=== PATIENT | male | born 2000 | race Caucasian/White ===

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

== ENCOUNTER 2023-04-05 00:45 | Emergency (ER) | payer MEDICAID, SELFPAY ==
[2023-04-05 00:48] VITALS: BP 130/62; PULSE 91; RESP 18; TEMP 36.8; O2SAT 97; BMI 33.5
--- NOTE | 2023-04-05 01:14 | EDS_ITS ---
HPI History of Present Illness Chief Complaint: Chest Pain Detail of Chief Complaint: Epigastric abdominal pain after binge drinking the last several days. Informant: patient Onset/Context/Timing Onset: Hours and Days Timing: Continuous Quality: Positive for Aching Location: - (Epigastric abdominal pain. Not chest pain.) Maximum Severity: Moderate Associated Symptoms: Positive for Nausea and Vomiting Narrative Narrative: 23-year-old male no significant past medical or surgical history. Denies prior abdominal surgery. He has been binge drinking the last several days. Complaining of epigastric abdominal pain with nausea and vomiting the last 2 days. Denies any hematemesis. No fever. No melena. No prior history of pancreatitis. Denies ever being sick like this before when he drank but he did have 1 time around 18 years old when he had alcohol poisoning. Prior Similar Symptoms: No Recent Illness/Hospitalization: No CVD Risk Factors: Negative for Hypertension, Diabetes or Hypercholesterolemia PE Risk Factors: Negative for Recent Travel/Surgery, Recent Immobilization, Prior DVT or PE or Cancer TAD Risk Factors: Negative for Marfan's Syndrome PFSH PFSH Medical History Bipolar disorder Medical History no medical history Allergy/AdvReac Type Severity Reaction Status Date / Time No Known Allergies Allergy Verified 04/05/23 00:46 Surgical History no surgical history Social History Smoking Status: Never smoker ROS ROS ED ROS Narrative No recent illness. Epigastric abdominal pain after binge drinking. Nausea vomiting. Review of Systems ROS Unobtainable: Denies due to encephalopathy Constitutional Constitutional ED: Denies chills or fever(s) Eyes Eyes: Reports none ENT ENT ED: Denies ear pain Cardiovascular Cardiovascular: Denies chest pain Respiratory/Chest Respiratory/Chest: Reports dyspnea; Denies cough Gastrointestinal Gastrointestinal: Reports abdominal pain, nausea and vomiting; Denies constipation, diarrhea or melena Genitourinary Genitourinary ED: Denies dysuria or hematuria Musculoskeletal Musculoskeletal: Denies arthralgias Integumentary Denies abscess Neurologic Neurologic: Denies headache(s) Psychiatric Psychiatric: Denies anxiety Endocrine Endocrinology: Denies cold intolerance Hematologic/Lymphatic Hematologic/Lymphatic: Denies easy bleeding Allergic/Immunologic Allergic/Immunologic ED: Denies mouth swelling EXAM Physical Exam Narrative Exam Narrative: 23-year-old male. Complaining of epigastric Joseph pain. Vital signs stable afebrile. HEENT exam mildly dry. Neck nontender. Lungs are clear. Heart regular rhythm rate about 90 no murmur. Chest wall nontender. Abdomen soft, nondistended normal bowel sounds no peritoneal signs. Right upper and right lower quadrant unremarkable. Reproducible epigastric abdominal pain. No distention. Moving all 4 extremities. Neurologically awake and alert. No focal motor deficits. Back nontender. No trauma. Const Vital Signs: 04/05/23 00:48 04/05/23 00:52 04/05/23 02:45 Temperature 98.2 F Temperature Source Oral Pulse Rate 91 91 Respiratory Rate 18 18 Respiratory Effort Normal Blood Pressure 130/62 H 130/62 H Blood Pressure Mean 84 Pulse Ox 97 97 Oxygen Delivery Method Room Air Positive well nourished and well developed; Negative for cachectic, contractures or unkempt General Appearance ED: well developed; Negative for unkempt, cachectic, contractures or pallor Nutritional Appearance: Negative for cachectic HEENT Reports dry mucous membranes; Denies moist mucous membranes normocephalic and atraumatic; Negative for trauma or tenderness Mouth ED: Yes dry mucous membranes Mouth: dry mucous membranes Eyes PERRL and EOMs intact bilaterally Neck no lymphadenopathy, supple and no JVD General: Negative for tenderness Chest Wall inspection of chest normal and palpation of chest normal Chest: Negative for tenderness Resp normal respiratory effort and clear to auscultation bilaterally Effort and Inspection: Negative for respiratory distress Auscultation: Negative for rales, rhonchi or wheezes Cardio regular rhythm, S1 normal heart sound, S2 normal heart sound and no murmurs; Negative for regular rate Peripheral Pulses: pulses 2+ throughout GI normal to inspection, nondistended, normoactive bowel sounds, soft to palpation, non-distended and no masses; Negative for non-tender GI Narrative: Tender epigastric abdominal pain only. Right upper and right lower quadrant unremarkable. No distention Back/Spine no CVA tenderness and no thoracic nor lumbar tenderness General Back: Negative for CVA tenderness Cervical Spine: Negative for cervical spine tenderness Extremity normal to inspection General Extremety ED: Negative for edema or pulses abnormal General Extremity: Negative for edema or pulses abnormal Neuro oriented x3, CN's II-XII intact bilaterally and no sensory deficits noted Sensorium / Orientation: awake, alert, oriented to person, oriented to place and oriented to time; Negative for confused, lethargic or stuporous Motor Exam: strength 5/5 throughout Psych mental status grossly normal Appearance: Negative for unkempt Attitude: No agitated Mood & Affect: anxious; Negative for depressed or tearful Skin no rashes or lesions noted and no wounds General Skin Exam: Negative for jaundice or pallor Rashes: No rashes noted Trauma: Negative for abrasion or laceration Heart Score History: Moderately Suspicious ECG: Normal Age: </= 45 years Risk Factors: 1 or 2 Risk Factors Troponin: </= Normal Limit Score: 2 MDM MDM MDM Narrative Medical decision making narrative: 23-year-old male has been binge drinking last several days. He has had epigastric abdominal pain for the last 2 days. Associated nausea and vomiting. Differential would include alcoholic gastritis versus pancreatitis versus other. Labs to be obtained. To be treated with IV Protonix, IV fluids for dehydration, nausea and vomiting and Zofran for nausea. I do not think he needs any imaging at this time. Multiple repeat exams. Patient was treated with Zofran for nausea. Protonix. He was feeling better. Repeat abdominal exam was benign. No peritoneal signs. Be discharged home. Treated for gastritis. Prescription for Protonix. Follow- up with not improving. Return if worse. History & Record Review Discussion w/independent historian: Patient Lab Data Attestation: I reviewed the patient's lab results. Lab results narrative: CBC unremarkable. CMP unremarkable. Lipase normal. White count was 10. H&H of 13 and 41. Platelets 331. Alcohol level negative. Liver enzymes unremarkable. Rhythm Strip Rhythm Strip: Sinus Tach Rate: 140 Ectopy: None Discharge Plan Triage Chief Complaint: Chest Pain ED Provider: Jake Palma Dx/Rx/DC Orders Clinical Impression: Alcoholic gastritis, Abdominal pain Instructions: Abdominal Pain Primary Care Provider: Leeal Jackson Referrals: Leela Jackson MD [Primary Care Provider] - 3-5 Days if not improving Activity Restrictions/Additional Instructions: Protonix for your abdominal pain. Avoid alcohol. Increase diet slowly and as tolerated. Follow-up if not improving. Disposition Disposition: Home, Self Care Discharge Date/Time: 04/05/23 02:45
[2023-04-05 02:45] VITALS: BP 130/62; PULSE 91; RESP 18; O2SAT 97
[2023-04-05 06:31] LABS: Alcohol, Blood (Medical)-Serum < 3.0 mg/dL
[2023-04-05 06:32] LABS: ALB/GLOB Ratio 1.4 RATIO (0.9-2.4); AST(SGOT) 18 U/L (15-37); Alanine Aminotransfer ALT/SGPT 42 U/L (16-61); Albumin, Serum 4.5 g/dL (3.2-5.0); Alkaline Phosphatase 72 U/L (45-117); Anion Gap 8 (5-15); BUN 16 mg/dL (7-18); Calcium,Total 9.2 mg/dL (8.5-10.1); Chloride 103 mmol/L (98-107); EST Glomerular Filtration Rate 128 mL/min (>60); Est Glom Filt Rate - Afr Amer 155 mL/min (>60); Estimated Creatinine Clearance 140.13 ml/min; Globulin 3.3 g/dL (2.2-4.2); Glucose 104 mg/dL (74-106); Lipase 18 U/L (13-75); Potassium 3.4 mmol/L (3.5-5.1); Protein, Total 7.8 g/dL (6.4-8.2); Sodium Level 136 mmol/L (136-145)
[2023-04-05 07:55] LABS: Absolute Lymphocyte Count 1.81 X10^3/uL (0.83-4.51); Absolute Neutrophil Count 7.6 X10^3/uL (2.0-7.7); Basophil# 0.06 X10^3/uL; Basophil% 0.6 % (0-1); Eosinophil# 0.11 X10^3/uL; Hematocrit 41.1 % (40-54); Hemoglobin 13.9 g/dL (13.0-16.5); Lymphocyte # 1.81 X10^3/ul (0.83-4.51); Lymphocyte % 17.3 % (19-41); Mean Corp Hgb Conc 33.8 g/dL (32-36); Mean Corpuscular Hgb 31.2 pg (27.0-32.0); Mean Corpuscular Volume 92.2 fL (80-94); Monocyte# 0.87 X10^3/uL; Monocyte% 8.3 % (0-10); NRBC Flagged by Analyzer 0 % (0-5); Neutrophil # 7.61 X10^3/uL (2.7-7.7); Neutrophil % 72.5 % (47-70); Platelet Count 331 K/mm3 (150-450); RBC Distribution Width CV 11.9 % (11.6-14.6); RBC Distribution Width SD 39.7 fl (35.1-43.9); Red Blood Count 4.46 M/mm3 (4.6-6.2); White Blood Count 10.5 K/mm3 (4.4-11.0)
== END 2023-04-05 02:45 | disposition home or self-care (01) ==
PROVIDERS: Emergency Provider Emergency Medicine; PCP Internal Medicine; Visit Provider Emergency Medicine
DX: K29.20 Alcoholic gastritis without bleeding (principal); E86.0 Dehydration; R06.00 Dyspnea, unspecified; R07.9 Chest pain, unspecified
CPT/HCPCS: 99283; 36415; 80053; 82077; 83690; 85025; 96374; 96375; 99284; J7030; A4216; J2405

== ENCOUNTER 2023-04-25 18:05 | Emergency (ER) | payer MEDICAID, SELFPAY ==
[2023-04-25 18:07] VITALS: BP 132/89; PULSE 124; RESP 18; TEMP 37.2; O2SAT 94; BMI 33.9
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
== END 2023-04-25 18:12 | disposition left against medical advice (07) ==
LOC: ED 18:15
PROVIDERS: PCP Internal Medicine
DX: Z53.21 Procedure and treatment not carried out due to patient leaving prior to being seen by health care provider (principal)

== ENCOUNTER 2023-05-11 18:38 | Emergency (ER) | payer MEDICAID, SELFPAY ==
[2023-05-11 18:39] VITALS: BP 126/88; PULSE 108; RESP 16; TEMP 36.6; O2SAT 97; BMI 32.5
[2023-05-11 20:02] LABS: Absolute Lymphocyte Count 1.33 X10^3/uL (0.83-4.51); Absolute Neutrophil Count 5.5 X10^3/uL (2.0-7.7); Basophil# 0.04 X10^3/uL; Basophil% 0.5 % (0-1); Eosinophil# 0.13 X10^3/uL; Eosinophils% 1.7 % (0-5); Hemoglobin 14.5 g/dL (13.0-16.5); Lymphocyte # 1.33 X10^3/ul (0.83-4.51); Lymphocyte % 17.4 % (19-41); Mean Corpuscular Hgb 31.1 pg (27.0-32.0); Mean Corpuscular Volume 94.4 fL (80-94); Mean Platelet Vol. 9.9 fl (6.2-12.0); Monocyte# 0.62 X10^3/uL; Monocyte% 8.1 % (0-10); NRBC Flagged by Analyzer 0 % (0-5); Neutrophil # 5.49 X10^3/uL (2.7-7.7); Neutrophil % 71.9 % (47-70); Platelet Count 305 K/mm3 (150-450); RBC Distribution Width CV 12.2 % (11.6-14.6); RBC Distribution Width SD 41.7 fl (35.1-43.9); Red Blood Count 4.66 M/mm3 (4.6-6.2); White Blood Count 7.6 K/mm3 (4.4-11.0)
[2023-05-11 20:12] LABS: Alcohol, Blood (Medical)-Serum < 3.0 mg/dL
[2023-05-11 20:13] LABS: Anion Gap 7 (5-15); BUN 14 mg/dL (7-18); Calcium,Total 9.3 mg/dL (8.5-10.1); Chloride 107 mmol/L (98-107); Creatinine, Serum 0.93 mg/dL (0.70-1.30); EST Glomerular Filtration Rate 107 mL/min (>60); Est Glom Filt Rate - Afr Amer 130 mL/min (>60); Estimated Creatinine Clearance 120.54 ml/min; Glucose 102 mg/dL (74-106); Potassium 3.7 mmol/L (3.5-5.1); Sodium Level 140 mmol/L (136-145)
--- NOTE | 2023-05-11 20:16 | EX.ED.VIS.PS ---
HPI HPI - Psych History of Present Illness Chief Complaint: Suicidal Detail of Chief Complaint: Depression, violent behavior, anger management issues and possible suicidal Informant: patient and police/stockroom inventory clerk Onset/Context/Timing Onset: - (Patient is vague, evasive and not forthcoming.) Context: Suspect this has been an issue for the past 1 to 2 months based on patient' Conflict: Family and Work (Patient has been unemployed for approximately 2 to 3 years) Timing: Continuous and Waxes and wanes Current Severity: He states when he talks about his anger gets worse and small things make hi Maximum Severity: Severe (He became angry because his mom was on the phone and he broke his phone.) Worsened by: Situational factors (Multiple issues) Relieved by: Nothing Associated Symptoms Associated Symptoms - Psych: Positive for Depressed, Change in Eating, Change in sleeping, Agitated, Angry (Per patient), Hostile (Per patient and law enforcement) and Threatening (Per law enforcement); Negative for Paranoia, Visual Hallucinations or Auditory Hallucinations Specific plan (suicidal thought): He told me no. He told the oncology social worker he has plans to stab himself in t Narrative Narrative: Patient is a 23-year-old male who is not forthcoming with answers and is somewhat evasive. He became angry and violent towards his mother. This was over her being on the phone too long. He admits noncompliance with his meds. He was not forthcoming with the fact that he was here approximately 6 weeks ago and required admission to a psychiatric facility. [employer] was called to his mother's residence. They were initially able to talk to him. He then entered the house and went to the back of the house. The next time law enforcement saw Lux he was bleeding from his left forearm and right arm. Based on his behavior he was pink slipped by law enforcement. Prior similar symptoms: Yes Recent Illness/Hospitalization: Yes [facility] Medical History (Updated 05/11/23 @ 22:[address] Clint Montes MD) Bipolar disorder Explosive personality disorder Home Medications NK 05/11/23 [History Last Taken Unknown] Allergy/AdvReac Type Severity Reaction Status Date / Time No Known Allergies Allergy Verified 04/25/23 18:06 Social History (Updated 05/11/23 @ 20:[address] Clint Montes MD) household members: family Smoking Status: Never smoker substance use type: marijuana ROS ROS ED Constitutional Constitutional ED: Denies chills, fever(s), subjective, sweats or weight loss Eyes Eyes: Denies blurry vision, change in vision or diplopia ENT ENT ED: Denies ear pain, rhinorrhea or sore throat Cardiovascular Cardiovascular: Denies chest pain, orthopnea, palpitations or paroxysmal nocturnal dyspnea Respiratory/Chest Respiratory/Chest: Denies cough, dyspnea, dyspnea on exertion, orthopnea or paroxysmal nocturnal dyspnea Gastrointestinal Gastrointestinal: Denies abdominal pain, nausea or vomiting Genitourinary Genitourinary ED: Denies dysuria or hematuria Musculoskeletal Musculoskeletal: Denies arthralgias, back pain, myalgias or neck pain Integumentary Reports other Details: Superficial laceration to the left forearm and right arm 2.5 to 3 cm Neurologic Neurologic: Denies headache(s) Psychiatric Psychiatric: Reports depression and suicidal ideation; Denies anxiety Hematologic/Lymphatic Hematologic/Lymphatic: Denies easy bleeding or easy bruising EXAM Physical Exam Const Vital Signs: 05/11/23 18:39 05/11/23 20:38 05/11/23 21:27 Temperature 97.8 F Temperature Source Temporal Pulse Rate 108 H Respiratory Rate 16 16 16 Blood Pressure 126/88 H Blood Pressure Mean 100 Pulse Ox 97 Oxygen Delivery Method 05/11/23 21:41 Temperature Temperature Source Pulse Rate 82 Respiratory Rate 18 Blood Pressure 109/65 Blood Pressure Mean 79 Pulse Ox 98 Oxygen Delivery Method Room Air Positive well nourished, well developed and obese Constitutional Narrative: Patient appears perturbed. He becomes angry easily when asked questions regarding circumstances that led to him being brought to the emergency department. General Appearance ED: well developed Nutritional Appearance: obese HEENT Reports moist mucous membranes HEENT Narrative: There are numerous old healing scars without evidence infection normocephalic and atraumatic Eyes PERRL and EOMs intact bilaterally Eyes Narrative: There is no nystagmus. General Eye ED: Negative for pale conjunctiva or scleral icterus Neck no lymphadenopathy, supple and no JVD Chest Wall Chest Narrative: Appears no normal Resp normal respiratory effort and clear to auscultation bilaterally Cardio S1 normal heart sound and S2 normal heart sound Rate: regular rate GI non-tender, non-distended and no masses Auscultation: normoactive bowel sounds Palpation: soft Back/Spine no CVA tenderness Thoracic Spine / Upper Back: Negative for thoracic spinal tenderness Lumbar Spine / Lower Back: Negative for lumbar spinal tenderness Extremity Extremity Narrative: 3.0 and 2.5 cm laceration right arm and left forearm respectively. Neuro oriented x3 and CN's II-XII intact bilaterally MDM MDM Lab Data Attestation: I reviewed the patient's lab results. Lab results narrative: She is unremarkable. Basic metabolic panel is normal. Tox screen was positive for cannabinoids. Alcohol is negative. The test was negative. Labs: Laboratory Results - last 24 hr 05/11/23 19:15 WBC 7.6 RBC 4.66 Hgb 14.5 Hct 44.0 MCV 94.4 H MCH 31.1 MCHC 33.0 RDW Std Deviation 41.7 RDW Coeff of Shannan 12.2 Plt Count 305 MPV 9.9 Immature Gran % (Auto) 0.400 Neut % (Auto) 71.9 H Lymph % (Auto) 17.4 L Baldwin % (Auto) 8.1 Eos % (Auto) 1.7 Baso % (Auto) 0.5 Absolute Neuts (auto) 5.5 Absolute Lymphs (auto) 1.33 Nucleated RBC % 0 Sodium 140 Potassium 3.7 Chloride 107 Carbon Dioxide 26.0 Anion Gap 7 BUN 14 Creatinine 0.93 Estim Creat Clear Calc 120.54 Est GFR (MDRD) Af Amer 130 Est GFR (MDRD) Non-Af 107 BUN/Creatinine Ratio 15.0 Glucose 102 Calcium 9.3 Urine Opiates Screen NEGATIVE Urine Methadone Screen NEGATIVE Ur Barbiturates Screen NEGATIVE Ur Phencyclidine Scrn NEGATIVE Ur Amphetamines Screen NEGATIVE MDMA (Ecstasy) Screen NEGATIVE U Benzodiazepines Scrn NEGATIVE Urine Cocaine Screen NEGATIVE U Cannabinoids Screen POSITIVE H Ur Drug Screen Comment Ethyl Alcohol < 3.0 EKG Initial EKG: Attestation: I personally reviewed and interpreted this EKG as follows: Interpretation: Sinus Rhythm (Rate is 88 and EKG is normal. IL interval is 156 ms per cures duration 94 ms. QT duration 348 ms. Woodruff is normal.) Treatment and Re-Evaluation Narrative: Patient is becoming agitated. The charge nurse initially was able to just de-escalate things by talking to him. He is no longer cooperative. 20 mg of Geodon has been ordered. Patient care was transferred to the night physician at 2300. He is awaiting placement at psychiatric facility. Discharge Plan Triage Chief Complaint: Suicidal ED Provider: Clint Montes Dx/Rx/DC Orders Clinical Impression: Depression, major, recurrent, Intermittent explosive disorder, PTSD (post-traumatic stress disorder), Mood disorder, Suicidal thoughts, Verbalizes suicidal thoughts, Agitation, Violent behavior Prescriptions: No Action NK Primary Care Provider: Leela Jackson Referrals: Leela Jackson MD [Primary Care Provider] - Disposition Disposition: Psychiatric Hospital or Unit
[2023-05-11 20:23] LABS: Amphetamine Urine VISTA NEGATIVE (<1000 ng/mL); Barbiturate Urine VISTA NEGATIVE (< 200 ng/mL); Benzodiazepine Urine VISTA NEGATIVE (< 200 ng/mL); Cocaine Urine VISTA NEGATIVE (< 300 ng/mL); Ecstacy Urine VISTA NEGATIVE (< 500 ng/mL); Methadone Urine VISTA NEGATIVE (< 300 ng/mL); PCP Urine VISTA NEGATIVE (< 25 ng/mL); THC Urine VISTA POSITIVE (< 50 ng/mL); Vista UDS pH Range 4
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
--- NOTE | 2023-05-11 20:37 | ED.RN ---
ATTEMPTED TELEPHONE CONSENT WITH GUARDIAN NADEEM ARCINIEGA @ [phone], NO ANSWER. PER CLEARANCE CUTTER ISAI GUARDIAN AWARE THAT PATIENT IS HERE AT THIS TIME.
[2023-05-11 20:38] VITALS: RESP 16
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
[2023-05-11 21:27] VITALS: RESP 16
[2023-05-11 21:41] VITALS: BP 109/65; PULSE 82; RESP 18; O2SAT 98
--- NOTE | 2023-05-11 22:15 | ED.RN ---
PT STARTING TO GET AGITATED AND PUNCH THE GOFF, STATING THAT HE WANTS TO LEAVE. EXPLAINED TO PT THAT HE IS PINK SLIPPED AND IS UNABLE TO LEAVE. VERBAL DE-ESCALATION NOT HELPING. PT REFUSING TO TAKE ANY ORAL MEDICATIONS. PD CALLED TO BEDSIDE AND IM KIYA GIVEN.
[2023-05-11] MEDS: Ziprasidone IM 20 MG/ML VIAL IM (22:16)
--- NOTE | 2023-05-11 22:18 | ED.RN ---
PT IN ROOM HITTING AND KICKING CHAIR, STATING HE WAS GOING TO LEAVE. ATTEMPTED TO REDIRECT PT, UNSUCCESSFUL. PT STATES HE IS GOING TO LEAVE, HE DOES NOT WANT TO BE HERE. HE BEGINS TO YELL AT STAFF. KIYA ORDERED. EXPLAINED TO PT, REFUSES TO ALLOW NURSE TO ADMINISTER MEDICATION. SECURITY AT BEDSIDE. PT ESCALATES FURTHER, PD CALLED AND AT BEDSIDE. PD ABLE TO REDIRECT AND PT ACCEPTS SHOT.
[2023-05-12 01:36] VITALS: RESP 16
[2023-05-12 03:09] VITALS: BP 120/63; PULSE 63; RESP 18; TEMP 35.9; O2SAT 97
--- NOTE | 2023-05-12 07:07 | NURSING ---
GENERATIONS DR [facility] ADULT [address] REPORT [phone]
[2023-05-12 08:00] VITALS: RESP 14
[2023-05-12 09:00] VITALS: RESP 16
[2023-05-12 11:00] VITALS: BP 119/71; PULSE 74; RESP 14; O2SAT 97
== END 2023-05-12 11:51 ==
PROVIDERS: Emergency Provider Emergency Medicine; PCP Internal Medicine; Visit Provider Emergency Medicine
DX: F32.9 Major depressive disorder, single episode, unspecified (principal); F43.10 Post-traumatic stress disorder, unspecified; R45.851 Suicidal ideations; R45.6 Violent behavior; F12.90 Cannabis use, unspecified, uncomplicated
CPT/HCPCS: 80048; 80307; 82077; 85025; 87811; 93005; 96372; 99284; J3486

== ENCOUNTER 2023-06-13 08:12 | Emergency (ER) | payer MEDICAID, SELFPAY ==
[2023-06-13 08:13] VITALS: BP 123/75; PULSE 93; RESP 14; TEMP 36.3; O2SAT 99; BMI 34.4
[2023-06-13 09:09] LABS: Absolute Lymphocyte Count 2.24 X10^3/uL (0.83-4.51); Basophil# 0.07 X10^3/uL; Basophil% 0.7 % (0-1); Eosinophil# 0.16 X10^3/uL; Eosinophils% 1.5 % (0-5); Hematocrit 43.4 % (40-54); Hemoglobin 14.3 g/dL (13.0-16.5); Lymphocyte # 2.24 X10^3/ul (0.83-4.51); Lymphocyte % 21.5 % (19-41); Mean Corp Hgb Conc 32.9 g/dL (32-36); Mean Corpuscular Hgb 30.4 pg (27.0-32.0); Mean Corpuscular Volume 92.3 fL (80-94); Mean Platelet Vol. 9.6 fl (6.2-12.0); Monocyte# 0.93 X10^3/uL; Monocyte% 8.9 % (0-10); NRBC Flagged by Analyzer 0 % (0-5); Neutrophil # 6.99 X10^3/uL (2.7-7.7); Platelet Count 298 K/mm3 (150-450); RBC Distribution Width CV 12.6 % (11.6-14.6); RBC Distribution Width SD 42.6 fl (35.1-43.9); White Blood Count 10.4 K/mm3 (4.4-11.0)
[2023-06-13 09:21] LABS: Anion Gap 5 (5-15); BUN 19 mg/dL (7-18); Calcium,Total 9.1 mg/dL (8.5-10.1); Chloride 107 mmol/L (98-107); EST Glomerular Filtration Rate 149 mL/min (>60); Est Glom Filt Rate - Afr Amer 180 mL/min (>60); Estimated Creatinine Clearance 160.14 ml/min; Glucose 106 mg/dL (74-106); Potassium 3.6 mmol/L (3.5-5.1); Sodium Level 138 mmol/L (136-145)
[2023-06-13 09:24] LABS: Alcohol, Blood (Medical)-Serum < 3.0 mg/dL
[2023-06-13 09:41] LABS: Amphetamine Urine VISTA NEGATIVE (<1000 ng/mL); Barbiturate Urine VISTA NEGATIVE (< 200 ng/mL); Benzodiazepine Urine VISTA NEGATIVE (< 200 ng/mL); Cocaine Urine VISTA NEGATIVE (< 300 ng/mL); Ecstacy Urine VISTA NEGATIVE (< 500 ng/mL); Methadone Urine VISTA NEGATIVE (< 300 ng/mL); PCP Urine VISTA NEGATIVE (< 25 ng/mL); THC Urine VISTA POSITIVE (< 50 ng/mL); Vista UDS pH Range 5
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
--- NOTE | 2023-06-13 11:16 | ED.RN ---
workers compensation legal secretary in room
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
--- NOTE | 2023-06-13 12:56 | CM.ED ---
Social Work EVERT contacted LG to review conversations, explaining patient is not agreeable to go to [facility] and due to patient's limited support it would be difficult to contract for safety as patient informed MD he planned to be hit by a car. EVERT requested a copy of guardianship documents be sent to [facility], LG agreeable. EVERT also inquired if patient would be appropriate for Assisted Outpatient Treatment. Legal guardian plans to review with Director Radha to further discuss options. LG will continue to work on housing options with patient's SSA. EVERT reviewed referral process and explained referrals will be sent to [facility] and [facility] as those are closer facilities; LG voiced understanding and agreeable to plan. EVERT attempted to contact [facility] twice, no answer. EVERT contacted [facility], beds available. EVERT faxed referral. Plan: referral pending at [facility] LEANN Ruiz
[2023-06-13 13:13] VITALS: PULSE 90; RESP 16; TEMP 36.5; O2SAT 98
--- NOTE | 2023-06-13 13:23 | CM.ED ---
Addendum entered by Shelly Fagan 06/13/23 14:12: Patient's SSA Marley arrived to ED and provided patient with a cell phone with contact numbers programed. Marley also provided a copy of guardianship paperwork for patient's chart. EVERT faxed copy of guardianship paperwork to [facility], copy also placed on patient's chart. LEANN Ruiz Original Note: Social Work Patient accepted to [facility] by MD Dickerson, going to the second floor, N2N [phone]. [facility] [place] requesting a copy of pink slip as well as guardianship paperwork. EVERT informed staff the guardian was emailing those documents to EVERT, however, EVERT has not received them yet. [facility] will contact LG as well. EVERT updated care team, pink slip faxed to [facility]. statistical secretary to arrange transportation, ETA 45mins. [facility], patient voiced understanding and has no questions. EVERT attempted to contact LG, unable to leave due to box being full. EVERT contacted patient's SSA who reports she will look for guardianship documents and provide to [facility] if she locates them. [facility] also plans to provide patient with a phone before he leaves [facility]. Plan: [facility] [place] for psychiatric hospitalization LEANN Ruiz
[2023-06-13 13:42] VITALS: BP 101/64
[2023-06-13 14:37] VITALS: PULSE 91; RESP 16
== END 2023-06-13 14:42 ==
LOC: ED 11:23
PROVIDERS: Emergency Provider Student in an Organized Health Care Education/Training Program; PCP Internal Medicine; Visit Provider Student in an Organized Health Care Education/Training Program
DX: R45.851 Suicidal ideations (principal); F31.9 Bipolar disorder, unspecified; F91.3 Oppositional defiant disorder; F43.10 Post-traumatic stress disorder, unspecified; F63.81 Intermittent explosive disorder; Z91.51 Personal history of suicidal behavior; F41.9 Anxiety disorder, unspecified
CPT/HCPCS: 36415; 80048; 80307; 82077; 85025; 87811; 99284

== ENCOUNTER 2023-09-15 00:39 | Emergency (ER) | payer MEDICAID, SELFPAY ==
[2023-09-15 00:40] VITALS: BP 145/81; PULSE 87; RESP 16; TEMP 36.8; O2SAT 98; BMI 37.5
--- NOTE | 2023-09-15 02:00 | EDS_ITS ---
HPI History of Present Illness Chief Complaint: Cold Sx Informant: patient Narrative Narrative: Patient is a 23-year-old male with history of bipolar disorder. He states over the past 3 to 4 days has had congestion drainage and cough. He states that he has been exposed to his mother who recently tested positive for COVID. He states he is concerned he may have the same infection based on his symptoms and with this comes in for evaluation [facility] Medical History Bipolar disorder Explosive personality disorder Home Medications albuterol sulfate 90 mcg/actuation aerosol inhaler (Ventolin HFA) 2 puff inhalation Q4H PRN PRN Wheezing/SOB #1 device 09/15/23 [Rx Last Taken Unknown] benzonatate 200 mg capsule 200 mg PO TID PRN cough #30 caps 09/15/23 [Rx Last Taken Unknown] dexamethasone 6 mg tablet 6 mg PO DAILY 10 days #10 tabs 09/15/23 [Rx Last Taken Unknown] Allergy/AdvReac Type Severity Reaction Status Date / Time No Known Allergies Allergy Verified 09/15/23 00:43 Social History household members: family Smoking Status: Never smoker substance use type: marijuana ROS ROS ED Constitutional Constitutional ED: Denies chills or fever(s) ENT ENT ED: Reports rhinorrhea and sore throat Cardiovascular Cardiovascular: Denies chest pain Respiratory/Chest Respiratory/Chest: Reports cough; Denies dyspnea Gastrointestinal Gastrointestinal: Denies abdominal pain, diarrhea, nausea or vomiting Genitourinary Genitourinary ED: Denies dysuria Musculoskeletal Musculoskeletal: Reports myalgias Integumentary Denies rash Neurologic Neurologic: Denies headache(s) Hematologic/Lymphatic Hematologic/Lymphatic: Denies easy bleeding or easy bruising EXAM Physical Exam Const Vital Signs: 09/15/23 00:40 09/15/23 01:17 Temperature 98.2 F Temperature Source Temporal Pulse Rate 87 Respiratory Rate 16 Respiratory Effort Normal Non-Labored Respiratory Pattern Normal Blood Pressure 145/81 H Blood Pressure Mean 102 Pulse Ox 98 Oxygen Delivery Method Room Air Positive well nourished and well developed General Appearance ED: well developed HEENT HEENT Narrative: Nasal mucosa is hyperemic and boggy Posterior pharynx displays cobblestoning consistent with sinus drainage without airway edema or compromise No signs of infection noted in the posterior pharynx Eyes PERRL and EOMs intact bilaterally Neck supple Neck Narrative: Positive anterior cervical lymphadenopathy noted No nuchal rigidity or meningeal signs Resp normal respiratory effort Resp Narrative: Breath sounds are diminished throughout with faint expiratory wheeze in the bilateral bases but otherwise no signs of respiratory distress Cardio regular rate and regular rhythm Extremity normal to inspection Extremity Narrative: No asymmetric edema no pitting edema negative Homans' sign bilaterally Neuro oriented x3, CN's II-XII intact bilaterally and no sensory deficits noted Sensorium / Orientation: alert Motor Exam: strength 5/5 throughout Psych mental status grossly normal Skin no rashes or lesions noted MDM MDM MDM Narrative Medical decision making narrative: Patient presented to the ER slightly hypertensive but otherwise with stable vitals. His symptoms are consistent with upper respiratory tract infection secondary to COVID versus influenza versus RSV. There is also potential for pneumonia based on his symptoms. I discussed with the patient that he most lik jimmy has COVID based on his known sick exposure but we discussed obtaining a swab and even chest x-ray. Patient states he does not want to stay in the ER while he waits for the studies to be performed. At this time he is not hypoxic he is not in respiratory distress he is not requiring supplemental oxygen and his history and exam is most consistent with viral infection and therefore be given symptomatic medications and discharged home History & Record Review Discussion w/independent historian: Patient Discharge Plan Triage Chief Complaint: Cold Sx ED Provider: Hua Foy Dx/Rx/DC Orders Clinical Impression: Upper respiratory tract infection, Bipolar disorder Instructions: ED URI, Viral, No Abx (Adult) Prescriptions: New dexamethasone 6 mg tablet 6 mg PO DAILY 10 Days Qty: 10 0RF albuterol sulfate [Ventolin HFA] 90 mcg/actuation HFA aerosol inhaler 2 puff inhalation Q4H PRN PRN (Reason: Wheezing/SOB) Qty: 1 0RF benzonatate 200 mg capsule 200 mg PO TID PRN (Reason: cough) Qty: 30 0RF Primary Care Provider: Care Physician,No Primary Referrals: Merlin Carias MD [STAFF PHYSICIAN] - Care Physician,No Primary [Primary Care Provider] - Activity Restrictions/Additional Instructions: Your symptoms are consistent with a viral upper respiratory tract infection which will last anywhere from 7 days to 4 weeks. Take the medications as directed to help control your symptoms and return to the ER should you have any further concerns Disposition Disposition: Home, Self Care Discharge Date/Time: 09/15/23 02:53
[2023-09-15] MEDS: Albuterol Sulfate 8 gm Inhaler (60 puffs) 2 PUFF INHALATION (02:16)
[2023-09-15] MEDS: Benzonatate 100 MG Capsule 200 MG PO (02:36)
[2023-09-15] MEDS: dexAMETHasone 4 MG Tablet 6 MG PO ×2 (02:37→02:39)
[2023-09-15 02:40] VITALS: BP 145/81; PULSE 77; RESP 15; O2SAT 97
[2023-09-15 02:41] VITALS: O2SAT 97
== END 2023-09-15 02:53 | disposition home or self-care (01) ==
PROVIDERS: Emergency Provider Emergency Medicine; Visit Provider Emergency Medicine
DX: J06.9 Acute upper respiratory infection, unspecified (principal); F31.9 Bipolar disorder, unspecified
CPT/HCPCS: 99284

== ENCOUNTER 2023-10-07 14:48 | Emergency (ER) | payer MEDICAID, SELFPAY ==
[2023-10-07 14:49] VITALS: BP 133/95; PULSE 99; RESP 20; TEMP 36.2; O2SAT 96; BMI 35.6
--- NOTE | 2023-10-07 15:06 | EDS_ITS ---
HPI History of Present Illness HPI Narrative: 23-year-old male history of PTSD. Currently on no medications. States that he has had bilateral lower extremity discomfort primarily with walking over the last 4 weeks. Denies any fall injury or trauma. No fever. No swelling. No calf pain. No history of DVT or PE. No recent travel, surgery or immobilization. No other complaints. He is never had any leg surgery. Chief Complaint: Lower Extremity Injury Informant: patient Occured/Mechanism Mechanism/Context: No injury and No blunt trauma Onset/Context/Timing Onset: Weeks Context: Gradual Onset Timing: Intermittent Quality of Pain: Dull and Aching Current Severity: Mild Maximum Severity: Mild Associated Symptoms Associated Symptoms: Negative for Parasthesia, Weakness or Loss of Funtion Narrative Narrative: 23-year-old male with atraumatic anterior maldonado pain bilaterally for 4 weeks. Worse with walking or walking up steps. Prior similar symptoms: Yes Recent Illness/Hospitalization: No PFSH PFSH Medical History Bipolar disorder Explosive personality disorder Allergy/AdvReac Type Severity Reaction Status Date / Time No Known Allergies Allergy Verified 10/07/23 14:49 Social History household members: family Smoking Status: Light Smoker (<10/day) substance use type: marijuana ROS ROS ED ROS Narrative Denies recent illness. Review of Systems ROS Unobtainable: Denies due to encephalopathy Constitutional Constitutional ED: Denies chills or fever(s) Eyes Eyes: Denies blurry vision ENT ENT ED: Denies ear pain Cardiovascular Cardiovascular: Denies chest pain Respiratory/Chest Respiratory/Chest: Denies cough or dyspnea Gastrointestinal Gastrointestinal: Denies abdominal pain, constipation, diarrhea, nausea or vomiting Genitourinary Genitourinary ED: Denies dysuria or hematuria Musculoskeletal Musculoskeletal: Denies arthralgias, back pain, myalgias or neck pain Integumentary Denies abscess or Abrasions Neurologic Neurologic: Denies headache(s) Psychiatric Psychiatric: Denies anxiety Endocrine Endocrinology: Denies polydipsia Hematologic/Lymphatic Hematologic/Lymphatic: Denies easy bleeding Allergic/Immunologic Allergic/Immunologic ED: Denies mouth swelling EXAM Physical Exam Narrative Exam Narrative: 23-year-old male no acute distress sitting upright in bed. Nurse present in room. Vital signs stable afebrile. H EENT exam unremarkable. Neck nontender lymphadenopathy. Lungs clear to auscultation bilaterally. Heart regular rhythm rate about 95 no murmur. Chest wall nontender. Abdomen soft nontender. Patient moving all 4 extremities. 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 Dorsi plantarflexion intact. He has mild bilateral anterior tibial tenderness. There is no swelling. No discoloration. No deformity. He has full flexion extension of both upper and lower extremities. Normal dorsi and plantar flexion of his feet. Normal DP pulses equal symmetrical. Calves are nontender without edema or cords. He has normal sensation and motor strength both lower extremities. Back nontender. Neurologically is awake and alert with no focal motor deficits. Const Vital Signs: 10/07/23 14:49 Temperature 97.1 F L Temperature Source Temporal Pulse Rate 99 Respiratory Rate 20 H Blood Pressure 133/95 H Blood Pressure Mean 107 Pulse Ox 96 Oxygen Delivery Method Room Air Positive well nourished and well developed; Negative for cachectic, contractures or unkempt General Appearance ED: well developed and NAD; Negative for unkempt, cachectic or contractures Nutritional Appearance: Negative for cachectic HEENT Reports moist mucous membranes normocephalic and atraumatic; Negative for trauma or tenderness Eyes PERRL General Eye ED: Negative for other Neck full ROM and supple Thyroid: Negative for tender Lymph Lymphatic: Negative for other Chest Wall inspection of chest normal and palpation of chest normal Chest: Negative for other Resp normal respiratory effort, no retractions and clear to auscultation bilaterally Effort and Inspection: Negative for pain with movement Auscultation: Negative for rales, rhonchi, wheezes or diminished lung sounds Percussion: Negative for other Cardio regular rate, regular rhythm, S1 normal heart sound, S2 normal heart sound and no murmurs Rate: Negative for bradycardia or tachycardic Rhythm: Negative for abnormal rhythm Bruits: Negative for other GI non-tender, non-distended and no masses Inspection: Negative for abdominal distention Auscultation: normoactive bowel sounds Palpation: soft; Negative for tender, guarding, rebound tenderness present or other Bladder / Kidney Exam: No other Back/Spine no CVA tenderness General Back: Negative for CVA tenderness Cervical Spine: Negative for cervical spine tenderness Thoracic Spine / Upper Back: Negative for thoracic spinal tenderness Lumbar Spine / Lower Back: Negative for lumbar spinal tenderness Extremity normal to inspection and full ROM General Extremety ED: Negative for cyanosis, edema or weight-bearing difficulty General Extremity: Negative for cyanosis, edema or weight-bearing difficulty Neuro oriented x3, CN's II-XII intact bilaterally, moves all extremities and no sensory deficits noted Sensorium / Orientation: alert, oriented to person, oriented to place and oriented to time; Negative for orientation impaired, confused, lethargic or stuporous Motor Exam: strength 5/5 throughout Psych mental status grossly normal Appearance: Negative for unkempt Speech: No other Mood & Affect: Negative for anxious Skin no wounds Lesions: no lesions Rashes: no rashes Trauma: Negative for abrasion, laceration or puncture MDM MDM MDM Narrative Medical decision making narrative: 23-year-old male with underlying mental health past medical history. Compl aining of bilateral lower extremity discomfort on the anterior shins. No fall injury or trauma. No fever or redness. No calf pain or swelling. I suspect this to be musculoskeletal pain. It could potentially be shinsplints. He does not need any imaging or labs. Motrin for pain. Follow-up if not improving. History & Record Review Discussion w/independent historian: Patient Additional record(s) reviewed:: Prior inpatient record, Prior outpatient record, Prior ED visit and Prior labs Discharge Plan Triage Chief Complaint: Lower Extremity Injury ED Provider: Jake Palma Dx/Rx/DC Orders Clinical Impression: Musculoskeletal leg pain Primary Care Provider: Care Physician,No Primary Referrals: Merlin Cheng MD [Non-Staff] - 1 Week if not improving Care Physician,No Primary [Primary Care Provider] - Activity Restrictions/Additional Instructions: Motrin for pain and swelling. Tylenol for pain. This should progressively improve with the medication. If not you can follow-up and have further evaluation.
== END 2023-10-07 15:23 | disposition home or self-care (01) ==
LOC: ED 15:07
PROVIDERS: Emergency Provider Emergency Medicine; Visit Provider Emergency Medicine
DX: M79.604 Pain in right leg (principal); F17.200 Nicotine dependence, unspecified, uncomplicated; M79.605 Pain in left leg
CPT/HCPCS: 99282

== ENCOUNTER 2023-10-09 15:28 | Emergency (ER) | payer MEDICAID, SELFPAY ==
[2023-10-09 15:29] VITALS: BP 132/76; PULSE 82; RESP 16; TEMP 36.3; O2SAT 100; BMI 35.9
--- NOTE | 2023-10-09 15:40 | RAD_ITS ---
INDICATION: TRAUMA EXAMINATION/TECHNIQUE: X-RAY - RIGHT XR Hand Min 3 Views 5 VIEWS COMPARISON: No relevant prior comparison study available FINDINGS: SOFT TISSUES: No soft tissue swelling or gas. No radiopaque foreign body. BONES/JOINTS: Sclerosis of the scaphoid is without evidence of displaced fracture. Normal alignment. Preservation of the joint space.. No sclerotic or destructive changes observed. RAD/Hand Min 3 Views IMPRESSION: Sclerotic line in scaphoid waist. If symptoms persist persist, follow-up exam is recommended to rule out occult fracture. Electronically Signed: Phan Gonzalez MD at 16:51 EST ,
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
== END 2023-10-09 17:55 | disposition home or self-care (01) ==
LOC: ED 18:04
PROVIDERS: Emergency Provider Emergency Medicine; Visit Provider Emergency Medicine
DX: S60.511A Abrasion of right hand, initial encounter (principal); F17.200 Nicotine dependence, unspecified, uncomplicated; S60.221A Contusion of right hand, initial encounter; W22.09XA Striking against other stationary object, initial encounter
CPT/HCPCS: 73130; 90715; 99282

== ENCOUNTER 2023-11-01 16:43 | Emergency (ER) | payer MEDICAID, SELFPAY ==
[2023-11-01 16:45] VITALS: BP 129/65; PULSE 99; RESP 18; TEMP 36.6; O2SAT 99; BMI 36.0
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
--- NOTE | 2023-11-01 17:12 | EX.ED.DYSGE1 ---
HPI History of Present Illness Chief Complaint: Abscess Informant: patient Onset/Context/Timing Onset: Days (2 days) Narrative Narrative: Patient presents due to concern for abscess on his buttock. He presents with his mother. He reportedly requested only a female physician and stated that if he got a male physician he would leave without treatment. He reports painful area on his buttock that started 2 days ago. He reportedly had a pilonidal cyst in the past but states he never got it treated and it just drained on its own. He has not had fever or chills. He went to urgent care where they did not know anything on exam but he came here for evaluation. [facility] Medical History Bipolar disorder Explosive personality disorder Home Medications cephalexin 500 mg capsule 500 mg PO Q6 #40 CAPSULES 11/01/23 [Rx Last Taken Unknown] hydrocodone-acetaminophen 5-325mg 5mg-325mg 1 tab PO Q6H PRN PRN Pain 3 days #10 TABLETS 11/01/23 [Rx Last Taken Unknown] sulfamethoxazole 800 mg-trimethoprim 160 mg tablet (Bactrim DS) 1 tab PO BID #20 tabs 11/01/23 [Rx Last Taken Unknown] Allergy/AdvReac Type Severity Reaction Status Date / Time No Known Allergies Allergy Verified 11/01/23 16:44 Social History household members: family Smoking Status: Light Smoker (<10/day) substance use type: marijuana ROS ROS ED Constitutional Constitutional ED: Denies chills or fever(s) Eyes Eyes: Denies discharge from eye(s) ENT ENT ED: Denies discharge from eye(s), rhinorrhea or sore throat Cardiovascular Cardiovascular: Denies chest pain Respiratory/Chest Respiratory/Chest: Denies cough or dyspnea Gastrointestinal Gastrointestinal: Denies abdominal pain, nausea or vomiting Musculoskeletal Musculoskeletal: Denies back pain or extremity pain Integumentary Reports abscess; Denies Abrasions or rash Neurologic Neurologic: Denies headache(s) or weakness Allergic/Immunologic Allergic/Immunologic ED: Denies lip swelling or urticaria EXAM Physical Exam Const Vital Signs: 11/01/23 16:45 Temperature 98 F Temperature Source Temporal Pulse Rate 99 Respiratory Rate 18 Blood Pressure 129/65 H Blood Pressure Mean 86 Pulse Ox 99 Oxygen Delivery Method Room Air Positive well nourished and well developed General Appearance ED: well developed HEENT Reports moist mucous membranes Eyes EOMs intact bilaterally Chest Wall inspection of chest normal and palpation of chest normal Resp normal respiratory effort and clear to auscultation bilaterally Cardio regular rate and regular rhythm GI non-tender GI Narrative: Slight fullness noted just to the right of the gluteal cleft on the superior aspect. No erythema. No area of fluctuance. Palpation: soft Extremity normal to inspection Neuro oriented x3 Psych Mood & Affect: anxious MDM MDM MDM Narrative Medical decision making narrative: At this time patient may be developing a pilonidal cyst, I do not appreciate any fluctuance. I do not think there is anything to drain at this point. It does appear he has some induration as his body is trying to react to a local infection. We will treat him with Bactrim and Keflex along with analgesics. I did advise him that he may require I&D in the future if this does develop further. Return instructions are given. Discharge Plan Triage Chief Complaint: Abscess ED Provider: Tootie Ivy Dx/Rx/DC Orders Clinical Impression: Cutaneous abscess Instructions: ED Abscess Antibiotic Treatment Only Prescriptions: New sulfamethoxazole-trimethoprim [Bactrim DS] 800-160 mg tablet 1 tab PO BID Qty: 20 0RF cephalexin 500 mg capsule 500 mg PO Q6 Qty: 40 0RF hydrocodone-acetaminophen 5-325 mg tablet 1 tab PO Q6H PRN PRN (Reason: Pain) 3 Days Qty: 10 0RF Primary Care Provider: Care Physician,No Primary Referrals: Payam Lopez MD [Med Staff - Active Staff] - As Needed Care Physician,No Primary [Primary Care Provider] - Disposition Disposition: Home, Self Care
[2023-11-01] MEDS: Cephalexin 250 MG Capsule 500 MG PO (17:15)
[2023-11-01] MEDS: Smz/Tmp Ds Tablet 1 TABLET PO (17:15)
[2023-11-01] MEDS: HYDROcodone Bitartrate/Apap 5/325 Tablet PO (17:15)
== END 2023-11-01 17:33 | disposition home or self-care (01) ==
PROVIDERS: Emergency Provider Emergency Medicine; Visit Provider Emergency Medicine
DX: L02.31 Cutaneous abscess of buttock (principal); F17.200 Nicotine dependence, unspecified, uncomplicated
CPT/HCPCS: 99282

== ENCOUNTER 2023-11-03 14:21 | Emergency (ER) | payer MEDICAID, SELFPAY ==
[2023-11-03 14:22] VITALS: BP 134/88; PULSE 109; RESP 18; TEMP 36.7; O2SAT 99; BMI 36.1
--- NOTE | 2023-11-03 14:42 | EX.ED.DYSGE1 ---
HPI <DAVON Jaime - Last Filed: 11/03/23 15:07> History of Present Illness Chief Complaint: Abscess Narrative Narrative: Patient presents with concern for a buttock abscess. About 4 days ago he developed pain in his buttock area. He was seen here on 11/01 and started on Keflex and Bactrim but the area has enlarged and become more painful today. He reports chills. No fever. He has had a pilonidal cyst in the past that resolved on its own. PFSH <DAVON Jaime - Last Filed: 11/03/23 15:07> [facility] Medical History Bipolar disorder Explosive personality disorder Home Medications cephalexin 500 mg capsule 500 mg PO Q6 #40 CAPSULES 11/01/23 [Rx Last Taken Unknown] hydrocodone-acetaminophen 5-325mg 5mg-325mg 1 tab PO Q6H PRN PRN Pain 3 days #10 TABLETS 11/01/23 [Rx Last Taken Unknown] sulfamethoxazole 800 mg-trimethoprim 160 mg tablet (Bactrim DS) 1 tab PO BID #20 tabs 11/01/23 [Rx Last Taken Unknown] hydrocodone-acetaminophen 5-325mg 5mg-325mg 1 tab PO Q6H PRN PRN Pain 3 days #12 TABLETS 11/03/23 [Rx Last Taken Unknown] Allergy/AdvReac Type Severity Reaction Status Date / Time No Known Allergies Allergy Verified 11/03/23 14:22 Social History household members: family Smoking Status: Light Smoker (<10/day) substance use type: marijuana ROS <DAVON Jaime - Last Filed: 11/03/23 15:07> ROS ED ROS Narrative Constitutional: Positive for chills. No fever. GI: Negative for nausea, vomiting. Skin: Positive for left buttock abscess. EXAM <DAVON Jaime - Last Filed: 11/03/23 15:07> Physical Exam Narrative Exam Narrative: CONST: Patient sitting in no acute distress. EYES: Normal inspection. NECK: Normal inspection. RESP: No respiratory distress, CTAB. CVS: Regular rate and rhythm, no murmur, no gallop. SKIN: Induration and erythema the right of the gluteal the left, no fluctuance. EXTREMITIES: Normal appearance, no pedal edema. NEURO: Oriented x4. PSYCH: Normal affect. Const Vital Signs: 11/03/23 14:22 Temperature 98.0 F Temperature Source Temporal Pulse Rate 109 H Respiratory Rate 18 Blood Pressure 134/88 H Blood Pressure Mean 103 Pulse Ox 99 Oxygen Delivery Method Room Air <Dr. Jake Palma MD - Last Filed: 11/03/23 15:06> Physical Exam Const Vital Signs: 11/03/23 14:22 Temperature 98.0 F Temperature Source Temporal Pulse Rate 109 H Respiratory Rate 18 Blood Pressure 134/88 H Blood Pressure Mean 103 Pulse Ox 99 Oxygen Delivery Method Room Air MDM <DAVON Jaime - Last Filed: 11/03/23 15:07> MDM MDM Narrative Medical decision making narrative: History gathered from: Mom and patient Differential: Buttock cellulitis versus abscess Right-sided pilonidal cyst was successfully drained. See procedure note below. Gauze packing placed, patient to finish his 10-day prescription of Keflex and Bactrim and I prescribed additional [place] tablets. He was given general surgery referral if needed and discharged in stable condition. I have personally performed a face to face assessment of the patient and have reviewed the ESTELA Note. I performed a substantive portion of the visit including all aspects of the following. My jacques findings include: History is [23-year-old male 4-day history of right buttock and buttock cleft pain. He was seen in the ER about 2 days ago started on both Bactrim and Keflex. He states the pain is worse. He denies any fever or systemic symptoms.] Exam is [21-year-old male no acute distress vital signs stable afebrile. HEENT exam normal. Lungs clear. Heart regular rhythm no murmur. Abdomen soft nontender. His buttock along the crease and proximal medial right buttock it is firm to the touch and tender. There is no surrounding cellulitis. No drainage. Does not appear to involve the anus. Breast exam unremarkable.] Medical Decision Making [right buttock abscess. Locally anesthetized with lidocaine. Once incision made by our physician assistant accounting manager with me present in the room. We broke up loculations with a blunt probe and probably expressed 3 to 5 cc of chirag pus and some blood. It was then packed with quarter inch iodoform gauze. Patient tolerated well. He will be discharged home on his current antibiotics Keflex and Bactrim and additional pain meds. Outpatient follow-up.] Other additions or changes: [None] <Dr. Jake Palma MD - Last Filed: 11/03/23 15:06> [facility] Narrative Medical decision making narrative: I have personally performed a face to face assessment of the patient and have reviewed the ESTELA Note. I performed a substantive portion of the visit including all aspects of the following. My jacques findings include: History is [23-year-old male 4-day history of right buttock and buttock cleft pain. He was seen in the ER about 2 days ago started on both Bactrim and Keflex. He states the pain is worse. He denies any fever or systemic symptoms.] Exam is [21-year-old male no acute distress vital signs stable afebrile. HEENT exam normal. Lungs clear. Heart regular rhythm no murmur. Abdomen soft nontender. His buttock along the crease and proximal medial right buttock it is firm to the touch and tender. There is no surrounding cellulitis. No drainage. Does not appear to involve the anus. Breast exam unremarkable.] Medical Decision Making [right buttock abscess. Locally anesthetized with lidocaine. Once incision made by our physician assistant accounting manager with me present in the room. We broke up loculations with a blunt probe and probably expressed 3 to 5 cc of chirag pus and some blood. It was then packed with quarter inch iodoform gauze. Patient tolerated well. He will be discharged home on his current antibiotics Keflex and Bactrim and additional pain meds. Outpatient follow-up.] Other additions or changes: [None] Discharge Plan Triage Chief Complaint: Abscess ED Midlevel Provider: Laura Montoya ED Provider: Jake Palma Dx/Rx/DC Orders Clinical Impression: Pilonidal abscess Instructions: ED Abscess Incision And Drainage Prescriptions: New hydrocodone-acetaminophen 5-325 mg tablet 1 tab PO Q6H PRN PRN (Reason: Pain) 3 Days Qty: 12 0RF No Action sulfamethoxazole-trimethoprim [Bactrim DS] 800-160 mg tablet 1 tab PO BID Qty: 20 0RF cephalexin 500 mg capsule 500 mg PO Q6 Qty: 40 0RF hydrocodone-acetaminophen 5-325 mg tablet 1 tab PO Q6H PRN PRN (Reason: Pain) 3 Days Qty: 10 0RF Primary Care Provider: Care Physician,No Primary Referrals: Tu Bryant MD [Med Staff - Active Staff] - Care Physician,No Primary [Primary Care Provider] - Activity Restrictions/Additional Instructions: Do soaks in warm soapy water 2-3 times daily evening sitz bath or bath. If the packing does not come out in 3 days you can moisten it and remove it. Complete all of the antibiotics. Follow-up with surgery if not improving. Disposition Disposition: Home, Self Care
[2023-11-03] MEDS: Lidocaine 1% (20 ml mdv) 20 ML Vial INFILT (14:57)
[2023-11-03] MEDS: HYDROcodone Bitartrate/Apap 5/325 Tablet PO (15:13)
[2023-11-03 15:32] VITALS: BP 130/72; PULSE 102; RESP 16; TEMP 36.6; O2SAT 99
== END 2023-11-03 15:34 | disposition home or self-care (01) ==
PROVIDERS: Emergency Provider Emergency Medicine; Visit Provider Emergency Medicine
DX: L05.01 Pilonidal cyst with abscess (principal); F17.200 Nicotine dependence, unspecified, uncomplicated
CPT/HCPCS: 10060; 10080; 99283